=== PATIENT | female | born 1995 | race African-American/Black ===

== ENCOUNTER 2016-09-26 11:53 | Observation (INO) | payer OTHER ==
[2016-09-26] VITALS (8 sets, daily range): BP systolic 109–123; BP diastolic 65–80
[~2016-09-26] VITALS: Ht 156.2 cm; Wt 49.7 kg
[2016-09-26] MEDS ORDERED: 0.9 % SODIUM CHLORIDE 10 ML DISP.SYRIN. IV PRN (12:15)
[2016-09-26] MEDS ORDERED: IV NORMAL SALINE 500ML BAG 500 ML IV SCH (12:15)
--- NOTE | 2016-09-26 12:37 | PHYS DOC ---
Past Medical History Past Medical History: No Pertinent History Past Surgical History: No Surgical History Smoking: Cigarettes, Less than 1pk/day Additional Information: 5 cigarettes daily Alcohol Use: Rarely Drug Use: None, Marijuana Social History Narrative: quit smoking marijuana 2 weeks ago Adult General Chief Complaint Chief Complaint: SYNCOPE HPI HPI Patient 21 yo female at work with complaint of sycnope while at work. Patient is noted before this event she had a small area of abdominal pain stretching around her umbilicus that made her comfortable without nausea, vomiting, diarrhea or UTI symptoms she denies the fact she could be her last was. It was 2 weeks ago. She's never been before. The pain is episodic located over the abdominal wall but she had this pain prior to the near- syncopal event. She knew she felt lightheaded and dizzy tenderness it, was not able to do so before she fell to the ground striking the back of her head. Presently she's got a mild headache described as aching and throbbing 4 out of 10 with no radiation no focal neurologic deficits, no vision changes no problems speaking. She denied any double vision but did have some blurred vision prior to passing out. This is a witnessed event or no seizure was described. Patient had been eating and drinking normally admits to smoking marijuana on occasion and taking medication. She denies any other medical problems taking any medications or drugs. Review of Systems Review of Systems Constitutional: Denies fever or chills [] Eyes: Denies change in visual acuity, redness, or eye pain [] HENT: Denies nasal congestion or sore throat [] Respiratory: Denies cough or shortness of breath [] Cardiovascular: No additional information not addressed in HPI [] GI: Complains of only abdominal wall pain without nausea vomiting diarrhea or bloody stools. : Denies dysuria or hematuria [] Musculoskeletal: Denies back pain or joint pain [] Integument: Denies rash or skin lesions [] Neurologic: Denies headache, focal weakness or sensory changes [] Endocrine: Denies polyuria or polydipsia [] Current Medications Current Medications Current Medications Medications (Trade) Dose Ordered Sig/Tomás Start Time Stop Time Status Last Admin Dose Admin Info (Do NOT chart on this entry -- for MONITORING) 1 each PRN DAILY PRN 09/26/16 13:00 09/28/16 12:59 Iohexol (Omnipaque 300 Mg/ml) 75 ml 1X ONCE 09/26/16 13:00 09/26/16 13:01 DC Ondansetron HCl (Zofran) 4 mg PRN Q8HRS PRN 09/26/16 15:45 09/27/16 15:44 Sodium Chloride 500 ml @ 500 mls/hr Q1H 09/26/16 12:15 09/26/16 12:45 DC 09/26/16 12:42 500 MLS/HR Sodium Chloride (Normal Saline Flush) 10 ml QSHIFT PRN 09/26/16 12:15 09/26/16 12:43 10 ML Allergies Allergies Allergies Coded Allergies Type Severity Reaction Last Updated Verified No Known Drug Allergies 09/26/16 No Physical Exam Physical Exam Constitutional: Well developed, well nourished, no acute distress, non-toxic appearance. [] HENT: Normocephalic, atraumatic, bilateral external ears normal, oropharynx moist, no oral exudates, nose normal. [] Eyes: PERRLA, EOMI, conjunctiva normal, no discharge. [] Neck: Normal range of motion, no tenderness, supple, no stridor. [] Cardiovascular:Heart rate regular rhythm, she does have a 2/6 systolic ejection murmur. Lungs & Thorax: Bilateral breath sounds clear to auscultation [] Abdomen: Bowel sounds normal, soft, mild tenderness over the umbilicus. No guarding rebound or organomegaly, no Montalvo's or McBurney's point tenderness palpation agree Howe sign. Skin: Warm, dry, no erythema, no rash. [] Back: No tenderness, no CVA tenderness. [] Extremities: No tenderness, no cyanosis, no clubbing, ROM intact, no edema. [] Neurologic: Alert and oriented X 3, normal motor function, normal sensory function, no focal deficits noted. [] Psychologic: Affect normal, judgement normal, mood normal. [] Current Patient Data Vital Signs Vital Signs Date Time Temp Pulse Resp B/P (MAP) Pulse Ox O2 Delivery O2 Flow Rate FiO2 09/26/16 12:21 97.8 82 16 116/67 (83) 100 Room Air 97.8 Lab Values Laboratory Tests Test 09/26/16 12:20 09/26/16 13:19 09/26/16 13:53 White Blood Count 7.7 x10^3/uL (4.0-11.0) Red Blood Count 3.01 x10^6/uL (3.50-5.40) L Hemoglobin 5.7 g/dL (12.0-15.5) *L Hematocrit 19.9 % (36.0-47.0) *L Mean Corpuscular Volume 66 fL (79-100) L Mean Corpuscular Hemoglobin 19 pg (25-35) L Mean Corpuscular Hemoglobin Concent 29 g/dL (31-37) L Red Cell Distribution Width 22.2 % (11.5-14.5) H Platelet Count 676 x10^3/uL (140-400) H Neutrophils (%) (Auto) 48 % (31-73) Lymphocytes (%) (Auto) 43 % (24-48) Monocytes (%) (Auto) 6 % (0-9) Eosinophils (%) (Auto) 2 % (0-3) Basophils (%) (Auto) 1 % (0-3) Neutrophils # (Auto) 3.7 x10^3uL (1.8-7.7) Lymphocytes # (Auto) 3.3 x10^3/uL (1.0-4.8) Monocytes # (Auto) 0.4 x10^3/uL (0.0-1.1) Eosinophils # (Auto) 0.2 x10^3/uL (0.0-0.7) Basophils # (Auto) 0.1 x10^3/uL (0.0-0.2) Segmented Neutrophils % 56 % (35-66) Lymphocytes % 32 % (24-48) Monocytes % 4 % (0-10) Eosinophils % 5 % (0-5) Basophils % 3 % (0-3) Platelet Estimate Increased (ADEQUATE) Hypochromasia Marked Poikilocytosis Mod Anisocytosis Mod Microcytosis Marked Target Cells Present Tear Drop Cells Occ Ovalocytes Few Schistocytes Few Sodium Level 142 mmol/L (136-145) Potassium Level 4.1 mmol/L (3.5-5.1) Chloride Level 106 mmol/L (98-107) Carbon Dioxide Level 26 mmol/L (21-32) Anion Gap 10 (6-14) 16 mmol/L (6-14) H Blood Urea Nitrogen 8 mg/dL (7-20) Creatinine 0.8 mg/dL (0.6-1.0) Estimated GFR (Cockcroft-Gault) 109.6 BUN/Creatinine Ratio 10 (6-20) Glucose Level 112 mg/dL (70-99) H 92 mg/dL (70-99) Calcium Level 8.9 mg/dL (8.5-10.1) Magnesium Level 2.0 mg/dL (1.8-2.4) Total Bilirubin 0.2 mg/dL (0.2-1.0) Aspartate Amino Transferase (AST) 15 U/L (15-37) Alanine Aminotransferase (ALT) 10 U/L (14-59) L Alkaline Phosphatase 47 U/L (46-116) Troponin I Quantitative < 0.017 ng/mL (0.000-0.055) UG-Llk-K-Type Natriuretic Peptide 225 pg/mL (0-124) H Total Protein 6.6 g/dL (6.4-8.2) Albumin 3.5 g/dL (3.4-5.0) Albumin/Globulin Ratio 1.1 (1.0-1.7) POC Urine HCG, Qualitative Hcg negative (Negative) POC Hemoglobin 7.5 g/dL (12-15) L POC Hematocrit 22 % (36-40) L POC Sodium 139 mmol/L (135-145) POC Potassium 4.1 mmol/L (3.5-5.0) POC Chloride 104 mmol/L (98-110) POC Total CO2 24 mmol/L (23-32) POC Blood Urea Nitrogen 7 mg/dL (8-26) L POC Creatinine 0.8 mg/dL (0.5-1.4) POC Ionized Calcium (Kam) 1.21 mmol/L (1.13-1.32) Laboratory Tests 09/26/16 12:20 Laboratory Tests 09/26/16 12:20 09/26/16 13:53 EKG EKG [] Radiology/Procedures Radiology/Procedures [] Course & Med Decision Making Course & Med Decision Making Pertinent Labs and Imaging studies reviewed. (See chart for details) [] She with a syncopal episode while at work complaining of abdominal pain. Concern for her pain could be possible tubo-ovarian rupture from ectopic , ovarian cyst with bleeding into the abdomen, cardiac dysrhythmia, neurogenic syncope, situational syncope. At this point it was revealed that approximately 1 PM the patient has an anemia that is pretty significant with an H&H of 5.9 and 19 which would likely cause for symptoms. She will be admitted to the hospital for transfusion of red blood cells at this time and also advise continued evaluation with CT head and abdomen and pelvis and ensure the patient is not . Patient admitted to IM for continued syncope, and anemia likely secondary to menorrhagia Impression: Anemia, Syncope Disposition: admission obs for continued eval Dragon Disclaimer Dragon Disclaimer This electronic medical record was generated, in whole or in part, using a voice recognition dictation system. Departure Departure Impression: Primary Impression: Anemia Additional Impression: Syncope Disposition: 02 TRANSFER T-[facility] Admitting Physician: Arleen Sadler Condition: IMPROVED Problem Qualifiers ADONIS GUTHRIE MD September 26, 2016 12:36
[2016-09-26 12:40] LABS: BASO # 0.1 x10^3/uL (0.0-0.2); BASO % 1 % (0-3); EOS % 2 % (0-3); LYMPH # 3.3 x10^3/uL (1.0-4.8); LYMPH % 43 % (24-48); MEAN CORPUSCULAR HEMOGLOBIN 19 pg (25-35); MEAN CORPUSCULAR HGB CONC 29 g/dL (31-37); MEAN CORPUSCULAR VOLUME 66 fL (79-100); MONO % 6 % (0-9); NEUT % 48 % (31-73); PLATELET COUNT 676 x10^3/uL (140-400); RED BLOOD COUNT 3.01 x10^6/uL (3.50-5.40); RED CELL DISTRIBUTION WIDTH 22.2 % (11.5-14.5); WHITE BLOOD COUNT 7.7 x10^3/uL (4.0-11.0)
[2016-09-26 12:54] LABS: CALCIUM 8.9 mg/dL (8.5-10.1); CREATININE 0.8 mg/dL (0.6-1.0); GFR 109.6; POTASSIUM 4.1 mmol/L (3.5-5.1)
[2016-09-26 12:55] LABS: ALBUMIN 3.5 g/dL (3.4-5.0); ALBUMIN/GLOBULIN RATIO 1.1 (1.0-1.7); TOTAL BILIRUBIN 0.2 mg/dL (0.2-1.0); TOTAL PROTEIN 6.6 g/dL (6.4-8.2)
[2016-09-26] MEDS ORDERED: CONTRAST GIVEN MC PRN (13:00)
[2016-09-26] MEDS ORDERED: IOHEXOL 300 MG/ML 75 ML VIAL IV ONE ×2 (13:00)
[2016-09-26 13:01] LABS: HEMATOCRIT 19.9 % (36.0-47.0); HEMOGLOBIN 5.7 g/dL (12.0-15.5)
--- NOTE | 2016-09-26 13:56 | EKG ---
[facility] [address] [place] [address] Test Date: 2016-09-26 Test Time: 12:10:17 Pat Name: MARGARET SANDERS Department: Room: Gender: F Environmental [employer]ler: : 1995 Requested By: ADONIS GUTHRIE Order Number: [id number] Reading MD: Jacques Walton Measurements Intervals Graham Rate: 74 P: -24 AR: 154 QRS: 35 QRSD: 66 T: 21 QT: 388 QTc: 431 Interpretive Statements SINUS RHYTHM NON-SPECIFIC ST/T CHANGES Electronically Signed On 09-30-2016 12:49:21 CDT by Jacques Walton
[2016-09-26 14:03] LABS: POTASSIUM ISTAT 4.1 mmol/L (3.5-5.0)
--- NOTE | 2016-09-26 14:47 | RAD ---
Indication syncopal episode. Protocol study. PA and lateral views of the chest were obtained. No prior imaging is available. Heart, pulmonary vessels and mediastinum appear normal. The lungs are clear. There is no pleural fluid or pneumothorax. The bony structures appear grossly intact. IMPRESSION: Normal study
[2016-09-26 15:09] LABS: % BASOS 3 % (0-3); % EOS 5 % (0-5); ANISOCYTOSIS MOD; HYPOCHROMIA MARKED; MICROCYTOSIS MARKED; PLT ESTIMATE INCREASED (ADEQUATE); POIKILOCYTOSIS MOD
[2016-09-26 15:10] LABS: OVALOCYTES FEW; SCHISTOCYTES FEW; TARGET CELLS PRESENT; TEAR DROP CELLS OCC
--- NOTE | 2016-09-26 15:14 | RAD ---
Indication syncopal episode. Noncontrast images of the head were obtained. No prior imaging of the head is available. The calvarium appears unremarkable. The visualized paranasal sinuses appear normal. Ventricles and sulci are normal. There is no subdural or epidural hematoma. There is no mass or midline shift. No hemorrhage is seen. No acute finding is apparent. IMPRESSION: Normal study PQRS Compliance Statement: One or more of the following individualized dose reduction techniques were utilized for this examination: 1. Automated exposure control 2. Adjustment of the mA and/or kV according to patient size 3. Use of iterative reconstruction technique
[2016-09-26] MEDS ORDERED: ONDANSETRON PF 4 MG/2 ML VIAL. IV PRN ×2 (15:45→17:15)
--- NOTE | 2016-09-26 15:49 | RAD ---
CT abdomen and pelvis with IV contrast History: Fall, trauma, umbilical pain. Comparison: None. Technique: After administration of oral and intravenous contrast, 75 mL Omnipaque 300, helical CT of the abdomen and pelvis was performed from the lung bases through the ischial tuberosities. Axial, sagittal, and coronal reconstructions were obtained. One or more of the following individualized dose reduction techniques were utilized for the study: Automated exposure control Adjustment of mA and/or kV according to patient's size Use of iterative reconstruction technique. Findings: Liver, spleen, pancreas, gallbladder, and bilateral adrenal glands are unremarkable. Bilateral kidneys enhance symmetrically. There is no evidence of bowel obstruction. No free air or significant free fluid is identified in the abdomen or pelvis. Small amount of free fluid is present in the pelvis is felt within physiologic limits. Appendix appears within normal limits. Urinary bladder is unremarkable. Uterus and adnexa have unremarkable CT appearance. Vaginal tampon is present. No acute osseous traumatic injury is identified in the abdomen or pelvis. Impression: No acute traumatic injury identified in the abdomen or pelvis.
[2016-09-26] MEDS ORDERED: ACETAMINOPHEN 325 MG TABLET. PO PRN (17:15)
--- NOTE | 2016-09-26 17:23 | PDOC1 ---
History and Physical Date of Admission Date of Admission DATE: 09/26/16 TIME: 17:16 Identification/Chief Complaint Chief Complaint passed out today at work Problems: Source Source: Caregiver, Chart review, Patient History of Present Illness History of Present Illness 21 y.o AA female, no signif past medical, passed out while at work today, works as a food bagger, CLaims was lightheaded, did not feel right then passed out, few secs, NO injuries, no sz like activity, no sxs afterwards,. Staff sent here , hgb 5 plus initially, on recheck was 7,.5 with microcytic indices. Claims heavy periods, currently on day 3. 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 Hemodynamically stable. Syncope never happened before. Past Medical History Cardiovascular: No pertinent hx Pulmonary: No pertinent hx GI: No pertinent hx Heme/Onc: No pertinent hx Hepatobiliary: No pertinent hx Psych: No pertinent hx Rheumatologic: No pertinent hx Infectious disease: No pertinent hx ENT: No pertinent hx Renal/: No pertinent hx Endocrine: No pertinent hx Dermatology: No pertinent hx Past Surgical History Past Surgical History: No pertinent history Family History Family History: Heart Disease, Hypertension Social History Smoke: No ALCOHOL: none Drugs: None Current Problem List Problem List Problems Medical Problems: (1) Anemia Status: Acute (2) Syncope Status: Acute Problems: Current Medications Current Medications Current Medications Sodium Chloride (Normal Saline Flush) 10 ml QSHIFT PRN IV AFTER MEDS AND BLOOD DRAWS Last administered on 09/26/16 12:43; Start 09/26/16 at 12:15 Sodium Chloride 500 ml @ 500 mls/hr Q1H IV Last administered on 09/26/16 12: 42; Start 09/26/16 at 12:15; Stop 09/26/16 at 12:45; Status DC Iohexol (Omnipaque 300 Mg/ml) 75 ml 1X ONCE IV Last administered on 09/26/16 15:06; Start 09/26/16 at 13:00; Stop 09/26/16 at 13:01; Status DC Iohexol (Omnipaque 300 Mg/ml) 75 ml 1X ONCE IV ; Start 09/26/16 at 13:00; Stop 09/26/16 at 13:01; Status DC Info (Do NOT chart on this entry -- for MONITORING) 1 each PRN DAILY PRN MC SEE COMMENTS; Start 09/26/16 at 13:00; Stop 09/28/16 at 12:59 Ondansetron HCl (Zofran) 4 mg PRN Q8HRS PRN IV NAUSEA/VOMITING; Start 09/26/16 at 15:45; Stop 09/27/16 at 15:44 Allergies Allergies: Coded Allergies: No Known Drug Allergies (Unverified , 09/26/16) ROS General: No: Chills, Night Sweats, Fatigue, Malaise, Appetite, Other PSYCHOLOGICAL ROS: No: Anxiety, Behavioral Disorder, Concentration difficultie , Decreased libido, Depression, Disorientation, Hallucinations, Hostility, Irritablity, Memory difficulties, Mood Swings, Obsessive thoughts, Physical abuse, Sexual abuse, Sleep disturbances, Suicidal ideation, Other Eyes: No Blurry vision, No Decreased vision, No Double vision, No Dry eyes, No Excessive tearing, No Eye Pain, No Itchy Eyes, No Loss of vision, No Photophobia , No Scotomata, No Uses contacts, No Uses glasses, No Other HEENT: No: Heacaches, Visual Changes, Hearing change, Nasal congestion, Nasal discharge, Oral lesions, Sinus pain, Sore Throat, Epistaxis, Sneezing, Snoring, Tinnitus, Vertigo, Vocal changes, Other ALLERGY AND IMMUNOLOGY: No: Hives, Insect Bite Sensitivity, Itchy/Watery Eyes, Nasal Congestion, Post Nasal Drip, Seasonal Allergies, Other Hematological and Lymphatic: No: Bleeding Problems, Blood Clots, Blood Transfusions, Brusing, Night Sweats, Pallor, Swollen Lymph Nodes, Other ENDOCRINE: No: Breast Changes, Galactorrhea, Hair Pattern Changes, Hot Flashes , Malaise/lethargy, Mood Swings, Palpitations, Polydipsia/polyuria, Skin Changes , Temperature Intolerance, Unexpected Weight Changes, Other Breast: No New/Changing Breast Lumps, No Nipple changes, No Nipple discharge, No Other Respiratory: No: Cough, Hemoptysis, Orthopnea, Pleuritic Pain, Shortness of breath, SOB with excertion, Sputum Changes, Stridor, Tachypnea, Wheezing, Other Cardiovascular: No Chest Pain, No Palpitations, No Orthopnea, No Paroxysmal Noc. Dyspnea, No Edema, No Lt Headedness, No Other Gastrointestinal: No Nausea, No Vomiting, No Abdominal Pain, No Diarrhea, No Constipation, No Melena, No Hematochezia, No Other Genitourinary: No Dysuria, No Frequency, No Incontinence, No Hematuria, No Retention, No Discharge, No Urgency, No Pain, No Flank Pain, No Other, No , No , No , No , No , No , No Musculoskeletal: No Gait Disturbance, No Joint Pain, No Joint Stiffness, No Joint Swelling, No Muscle Pain, No Muscular Weakness, No Pain In:, No Swelling In:, No Other Neurological: No Behavorial Changes, No Bowel/Bladder ControlChng, No Confusion , No Dizziness, No Gait Disturbance, No Headaches, No Impaired Coord/balance, No Memory Loss, No Numbness/Tingling, No Seizures, No Speech Problems, No Tremors, No Visual Changes, No Weakness, No Other Skin: No Dry Skin, No Eczema, No Hair Changes, No Lumps, No Mole Changes, No Mottling, No Nail Changes, No Pruritus, No Rash, No Skin Lesion Changes, No Other, No Acne Physical Exam General: Alert, Oriented X3, Cooperative, No acute distress HEENT: Atraumatic, PERRLA, Other (palepalpebral conjunctivae) Lungs: Clear to auscultation Heart: S1S2 Cardiovascular: S1, S2 Breasts: Normal Abdomen: Normal bowel sounds, Soft, No tenderness, No hepatosplenomegaly, No masses Rectal Exam: not examined, mass PELVIC: Nml ext genitalia Extremities: No clubbing, No cyanosis, No edema, Normal pulses, No tenderness/ swelling Skin: No rashes, No breakdown, No significant lesion Neuro: Normal gait, Normal speech, Strength at 5/5 X4 ext, Normal tone, Sensation intact, Cranial nerves 3-12 NL, Reflexes 2+ Psych/Mental Status: Mental status NL, Mood NL Vitals Vitals Vital Signs Date Time Temp Pulse Resp B/P (MAP) Pulse Ox O2 Delivery O2 Flow Rate FiO2 09/26/16 12:21 97.8 82 16 116/67 (83) 100 Room Air 97.8 Labs Labs Laboratory Tests Test 09/26/16 12:20 09/26/16 13:19 09/26/16 13:53 White Blood Count 7.7 x10^3/uL (4.0-11.0) Red Blood Count 3.01 x10^6/uL (3.50-5.40) Hemoglobin 5.7 g/dL (12.0-15.5) Hematocrit 19.9 % (36.0-47.0) Mean Corpuscular Volume 66 fL (79-100) Mean Corpuscular Hemoglobin 19 pg (25-35) Mean Corpuscular Hemoglobin Concent 29 g/dL (31-37) Red Cell Distribution Width 22.2 % (11.5-14.5) Platelet Count 676 x10^3/uL (140-400) Neutrophils (%) (Auto) 48 % (31-73) Lymphocytes (%) (Auto) 43 % (24-48) Monocytes (%) (Auto) 6 % (0-9) Eosinophils (%) (Auto) 2 % (0-3) Basophils (%) (Auto) 1 % (0-3) Neutrophils # (Auto) 3.7 x10^3uL (1.8-7.7) Lymphocytes # (Auto) 3.3 x10^3/uL (1.0-4.8) Monocytes # (Auto) 0.4 x10^3/uL (0.0-1.1) Eosinophils # (Auto) 0.2 x10^3/uL (0.0-0.7) Basophils # (Auto) 0.1 x10^3/uL (0.0-0.2) Segmented Neutrophils % 56 % (35-66) Lymphocytes % 32 % (24-48) Monocytes % 4 % (0-10) Eosinophils % 5 % (0-5) Basophils % 3 % (0-3) Platelet Estimate Increased (ADEQUATE) Hypochromasia Marked Poikilocytosis Mod Anisocytosis Mod Microcytosis Marked Target Cells Present Tear Drop Cells Occ Ovalocytes Few Schistocytes Few Sodium Level 142 mmol/L (136-145) Potassium Level 4.1 mmol/L (3.5-5.1) Chloride Level 106 mmol/L (98-107) Carbon Dioxide Level 26 mmol/L (21-32) Anion Gap 10 (6-14) 16 mmol/L (6-14) Blood Urea Nitrogen 8 mg/dL (7-20) Creatinine 0.8 mg/dL (0.6-1.0) Estimated GFR (Cockcroft-Gault) 109.6 BUN/Creatinine Ratio 10 (6-20) Glucose Level 112 mg/dL (70-99) 92 mg/dL (70-99) Calcium Level 8.9 mg/dL (8.5-10.1) Magnesium Level 2.0 mg/dL (1.8-2.4) Total Bilirubin 0.2 mg/dL (0.2-1.0) Aspartate Amino Transf (AST/SGOT) 15 U/L (15-37) Alanine Aminotransferase (ALT/SGPT) 10 U/L (14-59) Alkaline Phosphatase 47 U/L (46-116) Troponin I Quantitative < 0.017 ng/mL (0.000-0.055) DL-Wqh-O-Type Natriuretic Peptide 225 pg/mL (0-124) Total Protein 6.6 g/dL (6.4-8.2) Albumin 3.5 g/dL (3.4-5.0) Albumin/Globulin Ratio 1.1 (1.0-1.7) Bedside Urine HCG, Qualitative Hcg negative (Negative) Bedside Hemoglobin 7.5 g/dL (12-15) Bedside Hematocrit 22 % (36-40) Bedside Sodium 139 mmol/L (135-145) Bedside Potassium 4.1 mmol/L (3.5-5.0) Bedside Chloride 104 mmol/L (98-110) Bedside Total CO2 24 mmol/L (23-32) Bedside Blood Urea Nitrogen 7 mg/dL (8-26) Bedside Creatinine 0.8 mg/dL (0.5-1.4) Bedside Ionized Calcium (Kam) 1.21 mmol/L (1.13-1.32) Laboratory Tests Test 09/26/16 12:20 09/26/16 13:19 09/26/16 13:53 White Blood Count 7.7 x10^3/uL (4.0-11.0) Red Blood Count 3.01 x10^6/uL (3.50-5.40) Hemoglobin 5.7 g/dL (12.0-15.5) Hematocrit 19.9 % (36.0-47.0) Mean Corpuscular Volume 66 fL (79-100) Mean Corpuscular Hemoglobin 19 pg (25-35) Mean Corpuscular Hemoglobin Concent 29 g/dL (31-37) Red Cell Distribution Width 22.2 % (11.5-14.5) Platelet Count 676 x10^3/uL (140-400) Neutrophils (%) (Auto) 48 % (31-73) Lymphocytes (%) (Auto) 43 % (24-48) Monocytes (%) (Auto) 6 % (0-9) Eosinophils (%) (Auto) 2 % (0-3) Basophils (%) (Auto) 1 % (0-3) Neutrophils # (Auto) 3.7 x10^3uL (1.8-7.7) Lymphocytes # (Auto) 3.3 x10^3/uL (1.0-4.8) Monocytes # (Auto) 0.4 x10^3/uL (0.0-1.1) Eosinophils # (Auto) 0.2 x10^3/uL (0.0-0.7) Basophils # (Auto) 0.1 x10^3/uL (0.0-0.2) Segmented Neutrophils % 56 % (35-66) Lymphocytes % 32 % (24-48) Monocytes % 4 % (0-10) Eosinophils % 5 % (0-5) Basophils % 3 % (0-3) Platelet Estimate Increased (ADEQUATE) Hypochromasia Marked Poikilocytosis Mod Anisocytosis Mod Microcytosis Marked Target Cells Present Tear Drop Cells Occ Ovalocytes Few Schistocytes Few Sodium Level 142 mmol/L (136-145) Potassium Level 4.1 mmol/L (3.5-5.1) Chloride Level 106 mmol/L (98-107) Carbon Dioxide Level 26 mmol/L (21-32) Anion Gap 10 (6-14) 16 mmol/L (6-14) Blood Urea Nitrogen 8 mg/dL (7-20) Creatinine 0.8 mg/dL (0.6-1.0) Estimated GFR (Cockcroft-Gault) 109.6 BUN/Creatinine Ratio 10 (6-20) Glucose Level 112 mg/dL (70-99) 92 mg/dL (70-99) Calcium Level 8.9 mg/dL (8.5-10.1) Magnesium Level 2.0 mg/dL (1.8-2.4) Total Bilirubin 0.2 mg/dL (0.2-1.0) Aspartate Amino Transf (AST/SGOT) 15 U/L (15-37) Alanine Aminotransferase (ALT/SGPT) 10 U/L (14-59) Alkaline Phosphatase 47 U/L (46-116) Troponin I Quantitative < 0.017 ng/mL (0.000-0.055) MS-Fkx-G-Type Natriuretic Peptide 225 pg/mL (0-124) Total Protein 6.6 g/dL (6.4-8.2) Albumin 3.5 g/dL (3.4-5.0) Albumin/Globulin Ratio 1.1 (1.0-1.7) Bedside Urine HCG, Qualitative Hcg negative (Negative) Bedside Hemoglobin 7.5 g/dL (12-15) Bedside Hematocrit 22 % (36-40) Bedside Sodium 139 mmol/L (135-145) Bedside Potassium 4.1 mmol/L (3.5-5.0) Bedside Chloride 104 mmol/L (98-110) Bedside Total CO2 24 mmol/L (23-32) Bedside Blood Urea Nitrogen 7 mg/dL (8-26) Bedside Creatinine 0.8 mg/dL (0.5-1.4) Bedside Ionized Calcium (Kam) 1.21 mmol/L (1.13-1.32) VTE Prophylaxis Ordered VTE Prophylaxis Devices: Contraindicated VTE Pharmacological Prophylaxi: Contraindicated Assessment/Plan Assessment/Plan 1. SYmptomatic microcytic anemia (likely SUHA form menstrual loss) 2. Syncope vs near syncope 3. MEnorrhagia 4. Acute anemia of blood loss PLAn: Admit Transfuse 1 pRBC Recheck jonas Check Iron panel prior to BT COnsult GYNE for meds that can control menorrhgia Hook tele Seen at ER, counselled heavy If anemia persists despite control of heavy periods then sickle cell is another on difftl - whcih can be followed up as OP, BUt clearly we have a reason for the anemia JENNIFER TY MD September 26, 2016 17:23
[2016-09-26 17:37] LABS: % SAT IRON 2 % (15-34); IRON,SERUM 9 ug/dL (50-170)
[2016-09-26] MEDS ORDERED: fentaNYL PF VIAL 100 MCG/2 ML VIAL ONE (19:22)
[2016-09-27] VITALS (9 sets, daily range): BP systolic 99–121; BP diastolic 61–81
[2016-09-27 05:56] LABS: BASO # 0.1 x10^3/uL (0.0-0.2); BASO % 1 % (0-3); EOS % 3 % (0-3); HEMATOCRIT 29.6 % (36.0-47.0); HEMOGLOBIN 9.3 g/dL (12.0-15.5); LYMPH # 2.5 x10^3/uL (1.0-4.8); LYMPH % 22 % (24-48); MEAN CORPUSCULAR HEMOGLOBIN 22 pg (25-35); MEAN CORPUSCULAR HGB CONC 32 g/dL (31-37); MEAN CORPUSCULAR VOLUME 69 fL (79-100); MONO % 8 % (0-9); NEUT % 67 % (31-73); PLATELET COUNT 707 x10^3/uL (140-400); RED BLOOD COUNT 4.28 x10^6/uL (3.50-5.40); RED CELL DISTRIBUTION WIDTH 24.7 % (11.5-14.5); WHITE BLOOD COUNT 11.6 x10^3/uL (4.0-11.0)
--- NOTE | 2016-09-27 09:59 | ACF ---
Admission Forms Criteria ANEMIA Clinical Indications for Inpatient Care (Place 'X' for any and all applicable criteria) Ongoing inpatient care may be needed for anemia with 1 or more of the following (1)(2)(3)(4)(18)(37): [X]I. Severe signs or symptoms unresponsive to transfusion or volume replacement, including ANY ONE of the following: []a) Heart failure []b) Chest pain []c) Myocardial ischemia []d) Exertional dyspnea [X]e) Syncope []f) Acute peripheral ischemia (eg, pulseless, cool, mottled, or cyanotic extremity) []g) Other severe signs or symptoms []II. Cognitive impairment []III. Active hemorrhage []IV.Active hemolysis with rapidly progressive anemia []V. Hemodynamic instability Extended stay beyond goal length of stay for the primary condition may be needed until ALL of the following are present (1)(2)(3)(4): []a) Hemodynamic stability []b) Any active blood loss controlled []c) Severe signs or symptoms resolved []d) Mental status normal or at baseline []e) Stable hemoglobin after transfusion []f) Any underlying disorder or complications of treatment controlled The original [employer] content created by [employer] has been revised. The portions of the content which have been revised are identified through the use of italic text or in bold, and [email or web address] has neither reviewed nor approved the modified material. All other unmodified content is copyright [employer]. Please see references footnoted in the original [email or web address] edition 2016 Admission Criteria Met?: Yes MARNI ALEX Sep 27, 2016 09:59
[2016-09-27] MEDS ORDERED: ACETAMINOPHEN 325 MG TABLET. PO PRN (11:00)
[2016-09-27] MEDS ORDERED: hydrALAZINE 20 MG/ML VIAL. IVP PRN (11:00)
[2016-09-27] MEDS ORDERED: ONDANSETRON PF 4 MG/2 ML VIAL. IV PRN (11:00)
[2016-09-27] MEDS ORDERED: MORPHINE SULFATE 2 MG/ML DISP.SYRIN. IV PRN (11:00)
[2016-09-27] MEDS ORDERED: traMADol 50 MG TABLET PO PRN (11:00)
[2016-09-27] MEDS ORDERED: DOCUSATE SODIUM 100 MG CAPSULE. PO PRN (11:00)
--- NOTE | 2016-09-27 12:16 | RAD ---
Indication heavy menstrual bleeding. Initially transabdominal scans were obtained. Initial transabdominal scans were supplemented with transvaginal scans. HCG status is uncertain but for the purposes of this dictation will be assumed to be negative. The uterus measures approximately 6.4 x 4.6 x 2.7 cm. The endometrium measures only approximately 2 mm in thickness. Multiple follicular cysts are noted associated with the right ovary. Several follicular cysts are additionally noted associated with the left. There is a modest amount of free fluid in the pelvis. This is probably physiologic. IMPRESSION: Normal uterus, endometrium and ovaries. Modest amount of free fluid in the pelvis is noted which is probably physiologic
--- NOTE | 2016-09-27 12:43 | PDOC ---
PROGRESS NOTES Chief Complaint Chief Complaint 1. SYmptomatic microcytic anemia (likely SUHA form menstrual loss) 2. Syncope vs near syncope 3. MEnorrhagia 4. Acute anemia of blood loss 5. concussion post fall PLAn: Hb stable Transfuse 2 pRBC Recheck HH jonas Check Iron panel prior to BT COnsult GYNE for meds that can control menorrhgia, pelvis US today Hook tele dc tmr with iron po History of Present Illness History of Present Illness feels better today, still headache post fell and hit the desk yesterday mild bleeding from menstrual period currently Hb stable post transfusion Vitals Vitals Vital Signs Date Time Temp Pulse Resp B/P (MAP) Pulse Ox O2 Delivery O2 Flow Rate FiO2 09/27/16 11:00 98.8 70 18 119/79 (92) 96 Room Air 98.8 Physical Exam General: Alert, Oriented X3, Cooperative, No acute distress Heart: Regular rate, Normal S1, Normal S2 Lungs: Clear Abdomen: Normal bowel sounds, Soft, No tenderness, No hepatosplenomegaly, No masses Extremities: No clubbing, No cyanosis, No edema, Normal pulses, No tenderness/ swelling Skin: No rashes, No breakdown, No significant lesion Labs LABS Laboratory Tests Test 09/26/16 13:19 09/26/16 13:53 09/27/16 05:20 Bedside Urine HCG, Qualitative Hcg negative (Negative) Bedside Hemoglobin 7.5 g/dL (12-15) Bedside Hematocrit 22 % (36-40) Bedside Sodium 139 mmol/L (135-145) Bedside Potassium 4.1 mmol/L (3.5-5.0) Bedside Chloride 104 mmol/L (98-110) Bedside Total CO2 24 mmol/L (23-32) Anion Gap 16 mmol/L (6-14) Bedside Blood Urea Nitrogen 7 mg/dL (8-26) Bedside Creatinine 0.8 mg/dL (0.5-1.4) Glucose Level 92 mg/dL (70-99) Bedside Ionized Calcium (Kam) 1.21 mmol/L (1.13-1.32) White Blood Count 11.6 x10^3/uL (4.0-11.0) Red Blood Count 4.28 x10^6/uL (3.50-5.40) Hemoglobin 9.3 g/dL (12.0-15.5) Hematocrit 29.6 % (36.0-47.0) Mean Corpuscular Volume 69 fL (79-100) Mean Corpuscular Hemoglobin 22 pg (25-35) Mean Corpuscular Hemoglobin Concent 32 g/dL (31-37) Red Cell Distribution Width 24.7 % (11.5-14.5) Platelet Count 707 x10^3/uL (140-400) Neutrophils (%) (Auto) 67 % (31-73) Lymphocytes (%) (Auto) 22 % (24-48) Monocytes (%) (Auto) 8 % (0-9) Eosinophils (%) (Auto) 3 % (0-3) Basophils (%) (Auto) 1 % (0-3) Neutrophils # (Auto) 7.7 x10^3uL (1.8-7.7) Lymphocytes # (Auto) 2.5 x10^3/uL (1.0-4.8) Monocytes # (Auto) 0.9 x10^3/uL (0.0-1.1) Eosinophils # (Auto) 0.3 x10^3/uL (0.0-0.7) Basophils # (Auto) 0.1 x10^3/uL (0.0-0.2) Review of Systems Review of Systems no fever, chills, sob or chest pain Assessment and Plan Assessmemt and Plan Problems Medical Problems: (1) Anemia Status: Acute (2) Syncope Status: Acute Problems: Comment Review of Relevant I have reviewed the following items heidy (where applicable) has been applied. Labs Laboratory Tests Test 09/26/16 12:20 09/26/16 13:19 09/26/16 13:53 09/27/16 05:20 White Blood Count 7.7 x10^3/uL (4.0-11.0) 11.6 x10^3/uL (4.0-11.0) Red Blood Count 3.01 x10^6/uL (3.50-5.40) 4.28 x10^6/uL (3.50-5.40) Hemoglobin 5.7 g/dL (12.0-15.5) 9.3 g/dL (12.0-15.5) Hematocrit 19.9 % (36.0-47.0) 29.6 % (36.0-47.0) Mean Corpuscular Volume 66 fL (79-100) 69 fL (79-100) Mean Corpuscular Hemoglobin 19 pg (25-35) 22 pg (25-35) Mean Corpuscular Hemoglobin Concent 29 g/dL (31-37) 32 g/dL (31-37) Red Cell Distribution Width 22.2 % (11.5-14.5) 24.7 % (11.5-14.5) Platelet Count 676 x10^3/uL (140-400) 707 x10^3/uL (140-400) Neutrophils (%) (Auto) 48 % (31-73) 67 % (31-73) Lymphocytes (%) (Auto) 43 % (24-48) 22 % (24-48) Monocytes (%) (Auto) 6 % (0-9) 8 % (0-9) Eosinophils (%) (Auto) 2 % (0-3) 3 % (0-3) Basophils (%) (Auto) 1 % (0-3) 1 % (0-3) Neutrophils # (Auto) 3.7 x10^3uL (1.8-7.7) 7.7 x10^3uL (1.8-7.7) Lymphocytes # (Auto) 3.3 x10^3/uL (1.0-4.8) 2.5 x10^3/uL (1.0-4.8) Monocytes # (Auto) 0.4 x10^3/uL (0.0-1.1) 0.9 x10^3/uL (0.0-1.1) Eosinophils # (Auto) 0.2 x10^3/uL (0.0-0.7) 0.3 x10^3/uL (0.0-0.7) Basophils # (Auto) 0.1 x10^3/uL (0.0-0.2) 0.1 x10^3/uL (0.0-0.2) Segmented Neutrophils % 56 % (35-66) Lymphocytes % 32 % (24-48) Monocytes % 4 % (0-10) Eosinophils % 5 % (0-5) Basophils % 3 % (0-3) Platelet Estimate Increased (ADEQUATE) Hypochromasia Marked Poikilocytosis Mod Anisocytosis Mod Microcytosis Marked Target Cells Present Tear Drop Cells Occ Ovalocytes Few Schistocytes Few Sodium Level 142 mmol/L (136-145) Potassium Level 4.1 mmol/L (3.5-5.1) Chloride Level 106 mmol/L (98-107) Carbon Dioxide Level 26 mmol/L (21-32) Anion Gap 10 (6-14) 16 mmol/L (6-14) Blood Urea Nitrogen 8 mg/dL (7-20) Creatinine 0.8 mg/dL (0.6-1.0) Estimated GFR (Cockcroft-Gault) 109.6 BUN/Creatinine Ratio 10 (6-20) Glucose Level 112 mg/dL (70-99) 92 mg/dL (70-99) Calcium Level 8.9 mg/dL (8.5-10.1) Magnesium Level 2.0 mg/dL (1.8-2.4) Iron Level 9 ug/dL (50-170) Total Iron Binding Capacity 392 ug/dL (250-450) Iron Saturation 2 % (15-34) Total Bilirubin 0.2 mg/dL (0.2-1.0) Aspartate Amino Transf (AST/SGOT) 15 U/L (15-37) Alanine Aminotransferase (ALT/SGPT) 10 U/L (14-59) Alkaline Phosphatase 47 U/L (46-116) Troponin I Quantitative < 0.017 ng/mL (0.000-0.055) XX-Akr-E-Type Natriuretic Peptide 225 pg/mL (0-124) Total Protein 6.6 g/dL (6.4-8.2) Albumin 3.5 g/dL (3.4-5.0) Albumin/Globulin Ratio 1.1 (1.0-1.7) Bedside Urine HCG, Qualitative Hcg negative (Negative) Bedside Hemoglobin 7.5 g/dL (12-15) Bedside Hematocrit 22 % (36-40) Bedside Sodium 139 mmol/L (135-145) Bedside Potassium 4.1 mmol/L (3.5-5.0) Bedside Chloride 104 mmol/L (98-110) Bedside Total CO2 24 mmol/L (23-32) Bedside Blood Urea Nitrogen 7 mg/dL (8-26) Bedside Creatinine 0.8 mg/dL (0.5-1.4) Bedside Ionized Calcium (Kam) 1.21 mmol/L (1.13-1.32) Laboratory Tests Test 09/26/16 13:19 09/26/16 13:53 09/27/16 05:20 Bedside Urine HCG, Qualitative Hcg negative (Negative) Bedside Hemoglobin 7.5 g/dL (12-15) Bedside Hematocrit 22 % (36-40) Bedside Sodium 139 mmol/L (135-145) Bedside Potassium 4.1 mmol/L (3.5-5.0) Bedside Chloride 104 mmol/L (98-110) Bedside Total CO2 24 mmol/L (23-32) Anion Gap 16 mmol/L (6-14) Bedside Blood Urea Nitrogen 7 mg/dL (8-26) Bedside Creatinine 0.8 mg/dL (0.5-1.4) Glucose Level 92 mg/dL (70-99) Bedside Ionized Calcium (Kam) 1.21 mmol/L (1.13-1.32) White Blood Count 11.6 x10^3/uL (4.0-11.0) Red Blood Count 4.28 x10^6/uL (3.50-5.40) Hemoglobin 9.3 g/dL (12.0-15.5) Hematocrit 29.6 % (36.0-47.0) Mean Corpuscular Volume 69 fL (79-100) Mean Corpuscular Hemoglobin 22 pg (25-35) Mean Corpuscular Hemoglobin Concent 32 g/dL (31-37) Red Cell Distribution Width 24.7 % (11.5-14.5) Platelet Count 707 x10^3/uL (140-400) Neutrophils (%) (Auto) 67 % (31-73) Lymphocytes (%) (Auto) 22 % (24-48) Monocytes (%) (Auto) 8 % (0-9) Eosinophils (%) (Auto) 3 % (0-3) Basophils (%) (Auto) 1 % (0-3) Neutrophils # (Auto) 7.7 x10^3uL (1.8-7.7) Lymphocytes # (Auto) 2.5 x10^3/uL (1.0-4.8) Monocytes # (Auto) 0.9 x10^3/uL (0.0-1.1) Eosinophils # (Auto) 0.3 x10^3/uL (0.0-0.7) Basophils # (Auto) 0.1 x10^3/uL (0.0-0.2) Medications Current Medications Sodium Chloride (Normal Saline Flush) 10 ml QSHIFT PRN IV AFTER MEDS AND BLOOD DRAWS Last administered on 09/26/16 12:43; Start 09/26/16 at 12:15 Sodium Chloride 500 ml @ 500 mls/hr Q1H IV Last administered on 09/26/16 12: 42; Start 09/26/16 at 12:15; Stop 09/26/16 at 12:45; Status DC Iohexol (Omnipaque 300 Mg/ml) 75 ml 1X ONCE IV Last administered on 09/26/16 15:06; Start 09/26/16 at 13:00; Stop 09/26/16 at 13:01; Status DC Iohexol (Omnipaque 300 Mg/ml) 75 ml 1X ONCE IV ; Start 09/26/16 at 13:00; Stop 09/26/16 at 13:01; Status DC Info (Do NOT chart on this entry -- for MONITORING) 1 each PRN DAILY PRN MC SEE COMMENTS; Start 09/26/16 at 13:00; Stop 09/28/16 at 12:59 Ondansetron HCl (Zofran) 4 mg PRN Q8HRS PRN IV NAUSEA/VOMITING; Start 09/26/16 at 15:45; Stop 09/26/16 at 17:17; Status DC Ondansetron HCl (Zofran) 4 mg PRN Q6HRS PRN IV NAUSEA/VOMITING; Start 09/26/16 at 17:15; Stop 09/27/16 at 17:14 Acetaminophen (Tylenol) 650 mg PRN QID PRN PO temp Last administered on 20:11; Start 09/26/16 at 17:15 Fentanyl Citrate (Fentanyl 2ml Vial) 100 mcg STK-MED ONCE .ROUTE ; Start at 19:22; Stop 09/26/16 at 19:23; Status DC Acetaminophen (Tylenol) 650 mg PRN Q6HRS PRN PO FEVER; Start 09/27/16 at 11:00 Ondansetron HCl (Zofran) 4 mg PRN Q6HRS PRN IV NAUSEA/VOMITING; Start 09/27/16 at 11:00 Morphine Sulfate 2 mg PRN Q2HR PRN IV PAIN; Start 09/27/16 at 11:00 Tramadol HCl (Ultram) 50 mg PRN Q6HRS PRN PO PAIN; Start 09/27/16 at 11:00 Hydralazine HCl (Apresoline) 10 mg PRN Q4HRS PRN IVP ELEVATED BP, SEE COMMENTS ; Start 09/27/16 at 11:00 Docusate Sodium (Colace) 100 mg PRN DAILY PRN PO CONSTIPATION; Start 09/27/16 at 11:00 Vitals/I & O Vital Sign - Last 24 Hours 09/26/16 09/26/16 09/26/16 09/26/16 18:24 18:38 18:46 20:00 Temp 98.2 98.4 98.2 98.4 Pulse 73 72 73 73 Resp 18 18 18 20 B/P (MAP) 123/80 125/78 (94) 126/69 (88) 115/69 Pulse Ox 99 99 O2 Delivery Room Air Room Air 09/26/16 09/26/16 09/26/16 09/26/16 20:00 21:00 21:00 22:00 Temp 98.4 98.4 98.4 98.2 98.4 98.4 98.4 98.2 Pulse 73 68 68 69 Resp 20 20 20 20 B/P (MAP) 115/69 (84) 109/65 (80) 109/65 114/76 (89) Pulse Ox 100 100 100 O2 Delivery Room Air Room Air Room Air 09/26/16 09/26/16 09/26/16 09/26/16 22:00 22:15 23:00 23:48 Temp 98.2 98.3 98.3 98.3 98.2 98.3 98.3 98.3 Pulse 69 63 60 63 Resp 20 20 20 20 B/P (MAP) 114/76 117/74 121/77 (92) 117/74 Pulse Ox 100 O2 Delivery Room Air 09/26/16 09/27/16 09/27/16 09/27/16 23:56 00:18 01:00 02:00 Temp 98.3 98.4 98.2 98.4 98.3 98.4 98.2 98.4 Pulse 63 51 66 53 Resp 20 20 20 20 B/P (MAP) 117/74 114/61 99/70 (80) 116/80 (92) Pulse Ox 96 98 O2 Delivery Room Air Room Air 09/27/16 09/27/16 09/27/16 09/27/16 02:05 02:05 04:16 07:00 Temp 98.4 98.3 98.4 98.3 Pulse 53 58 Resp 20 20 20 B/P (MAP) 116/80 120/78 O2 Delivery Room Air 09/27/16 09/27/16 09/27/16 08:00 09:19 11:00 Temp 98.8 98.8 98.8 98.8 Pulse 66 70 Resp 18 18 B/P (MAP) 111/61 (78) 119/79 (92) Pulse Ox 99 96 O2 Delivery Room Air Room Air Room Air Intake and Output 09/26/16 09/26/16 09/27/16 15:00 23:00 07:00 Intake Total 500 ml 1310 ml Balance 500 ml 1310 ml TIANNA STARK MD Sep 27, 2016 12:43
[2016-09-27] MEDS: FERROUS SULFATE 325 MG TABLET. PO SCH (17:00)
[2016-09-27] MEDS ORDERED: IRON SUCROSE COMPLEX 200 MG in IV NORMAL SALINE 100ML 100 ML IV ONE (19:00)
[2016-09-28 05:39] LABS: BASO # 0.1 x10^3/uL (0.0-0.2); BASO % 1 % (0-3); EOS % 3 % (0-3); HEMATOCRIT 31.8 % (36.0-47.0); HEMOGLOBIN 9.6 g/dL (12.0-15.5); LYMPH # 4.1 x10^3/uL (1.0-4.8); LYMPH % 42 % (24-48); MEAN CORPUSCULAR HEMOGLOBIN 22 pg (25-35); MEAN CORPUSCULAR HGB CONC 30 g/dL (31-37); MEAN CORPUSCULAR VOLUME 72 fL (79-100); MONO % 9 % (0-9); NEUT % 45 % (31-73); PLATELET COUNT 648 x10^3/uL (140-400); RED BLOOD COUNT 4.41 x10^6/uL (3.50-5.40); WHITE BLOOD COUNT 9.9 x10^3/uL (4.0-11.0)
[2016-09-28 06:04] LABS: CREATININE 0.8 mg/dL (0.6-1.0); GFR 109.6; POTASSIUM 3.8 mmol/L (3.5-5.1)
[2016-09-28] MEDS: FERROUS SULFATE 325 MG TABLET. PO SCH (07:32)
[2016-09-28] MEDS ORDERED: FERR-26 PO (09:45)
--- NOTE | 2016-09-28 12:45 | PDOC3 ---
Discharge Summary [facility] Date of Admission: September 26, 2016 Discharge Date: Sep 28, 2016 Admitting Diagnosis 1. SYmptomatic microcytic anemia (likely SUHA form menstrual loss) 2. Syncope vs near syncope 3. MEnorrhagia 4. Acute anemia of blood loss 5. concussion post fall Problems: Final Diagnosis CONSULTS ob Brief Hospital Course Ms. Hayes is a 21 oldF, sent from work for syncope. She was found Hb 5.6, has heavy menstrual period every month. pelvic US neg. got 2u PRBC. dc home, fu with ob. iron po. dc time 35min. General: Alert, Oriented X3, Cooperative, No acute distress Heart: Regular rate, Normal S1, Normal S2 Lungs: Clear Abdomen: Normal bowel sounds, Soft, No tenderness, No hepatosplenomegaly, No masses Extremities: No clubbing, No cyanosis, No edema, Normal pulses, No tenderness/ swelling Skin: No rashes, No breakdown, No significant lesion Patient History: FHx: hypertension FHx: migraine headaches Problems: Disposition home CONDITION AT DISCHARGE: Improved Diet regular Scheduled Ferrous Sulfate (Ferrous Sulfate), 1 TAB PO BID, (Reported) Follow Up ob in 2 weeks TIANNA STARK MD Sep 28, 2016 12:45
--- NOTE | 2016-09-28 18:13 | CONS ---
DATE OF CONSULTATION: 09/27/2016 REASON FOR CONSULT: Abnormal uterine bleeding. HISTORY OF PRESENT ILLNESS: This is a 21-year-old nulliparous black female who presents to the Emergency Room and to the hospital with complaints of being lightheaded and syncopal episode. The patient states that she has not had this in the past. The patient per ER note felt that she had passed off for a few seconds with no seizure activity. The patient gives a history of regular periods lasting 5-7 days with first 2 days heavy and then sometimes ____ around her tampons or around her pads. The patient denies any family history of irregular bleeding. The patient has no history of any sickle cell anemia or thalassemia in her family. REVIEW OF SYSTEMS: Per HPI. PAST SURGICAL HISTORY: None. PAST MEDICAL HISTORY: None. IMAGING: Ultrasound, CT, and x-rays reviewed. Normal appearing uterus; however, pelvic ultrasound, transvaginal x-rays had ovaries consistent with polycystic ovary syndrome as far as ovaries are concerned. PHYSICAL EXAMINATION: There is nothing felt suprapubically such as enlarged pelvis. No hernias. No tenderness to palpation. Pelvic exam was deferred secondary to the patient previously having a pelvic ultrasound. IMPRESSION: Abnormal uterine bleeding with severe anemia, polycystic ovaries. We will follow up on lab test including prolactin, TSH, sickle cell screening, PT, PTT. We will also have the patient on 200 mg Venofer IV for her iron deficiency anemia. I explained to the patient her anemia is most likely secondary to abnormal uterine bleeding which could be caused from her heavy bleeding caused from her polycystic ovaries. We will also check a hemoglobin A1c and TSH. The patient was informed that no overt pathology was seen on her radiological studies and that this time treatment would consist of hormonal therapies such as control pills, Depo-Provera, Mirena IUD. The patient understood. She is not having insurance at this time. I informed her that I will be able to provide samples for a period of time her control pills, then she will have to be able take on daily basis and use her problem as reminder or take ____ time she brushes her teeth ____ in the morning or in the evening. The patient understood and agreed. After she received the Venofer they requested laboratory. The patient will be able to be discharged tomorrow and follow up with me in a week and I will try to bring her some control pills here in the morning. If you have any questions about this or any other patient, feel free to contact me. FABIEN STORM MD DR: GABE/maryjane JOB#: [id number] / [id number]
== END 2016-09-28 10:59 | disposition home or self-care (01) ==
LOC: ER 11:53 → ED HOLD 15:56 → 5 SOUTH 19:45
PROVIDERS: ADMIT Internal Medicine; ATTEND Internal Medicine
DX: D50.9 Iron deficiency anemia, unspecified (principal); R55 Syncope and collapse; N92.0 Excessive and frequent menstruation with regular cycle; D62 Acute posthemorrhagic anemia; Z87.891 Personal history of nicotine dependence; E28.2 Polycystic ovarian syndrome; S06.0X9A Concussion with loss of consciousness of unspecified duration, initial encounter; W19.XXXA Unspecified fall, initial encounter; Y93.89 Activity, other specified; Y92.89 Other specified places as the place of occurrence of the external cause; Y99.8 Other external cause status
CPT/HCPCS: 36415; 70450; 71020; 74177; 76830; 76856; 80047; 80048; 80053; 81025; 83540; 83550; 83735; 83880; 84146; 84443; 84484; 85007; 85027; 85660; 85730; 86850; 86900; 86901; 86920; 93005; 96360; 99285; 99406; G0378; J7040; P9016; Q9967; G0379

== ENCOUNTER 2019-07-09 13:58 | Emergency (ER) | payer SELFPAY ==
[2016-09-27 19:00] VITALS: BP 119/81
[~2019-07-09 13:58] MED LIST: FERR325T14 PO
== END 2019-07-09 15:31 | disposition left against medical advice (07) ==
LOC: ER 13:58
DX: R60.0 Localized edema (principal); Z53.21 Procedure and treatment not carried out due to patient leaving prior to being seen by health care provider